=== PATIENT | female | born 1990 | race Caucasian/White ===

== ENCOUNTER → 2016-07-07 | Outpatient (CLI) | payer BC | LOC: MW.CHFP 10:20 | PROVIDERS: ATTEND Physician Assistant | DX: R39.9 Unspecified symptoms and signs involving the genitourinary system (principal) | CPT/HCPCS: 81001; 87480; 87491; 87510; 87591; 87660 ==

== ENCOUNTER → 2016-07-12 | Outpatient (CLI) | payer BC ==
--- NOTE | 2016-07-13 09:56 | US ---
EXAM DATE: 07/12/16 PATIENT'S AGE: 25 Patient: HUBERT REDD Facility: [place], [place] Site . Site : 1990 Study: US Pelvis [id number]/[id number] 11:29:20 AM Ordering Physician: Charly Johnson Final Report: HISTORY: Pelvic pain. Findings: Multiple grayscale static images from a transvaginal pelvic ultrasound were evaluated. Ovaries were evaluated with color and spectral Doppler. The uterus measures 8.7 x 6.1 x 4.5 cm. The myometrium is homogeneous. The endometrial stripe is 9 mm in thickness. Two Nabothian cysts are present. There is trace free fluid in the cul-de-sac. The right ovary measures 2.3 x 2.1 x 1.7 cm. It is normal in appearance with normal blood flow. The left ovary measures 3.4 x 1.9 x 2.7 cm. It is normal in appearance with normal blood flow. Impression: 1. Trace free fluid the pelvis, most likely physiologic. 2. Otherwise normal pelvic ultrasound. Dictated by Kelly Smith MD @ Jul 13 2016 12:34AM (Electronic Signature) Report Signed by Proxy and Original Signed Document filed in the Medical Record. MTDD
== END ==
LOC: MW.US 10:00
PROVIDERS: ATTEND Physician Assistant
DX: R10.2 Pelvic and perineal pain (principal)
CPT/HCPCS: 76830; 76830-26

== ENCOUNTER 2016-11-12 21:25 | Emergency (ER) | payer BC ==
--- NOTE | 2016-11-12 22:17 | EDM.PDOC ---
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 She felt a shock that seemed limited to her hand and lasted a "split second". No prolonged exposure She felt stunned but no LOC no other injury noted She denies She complains of left thumb pain and tingling and LUE aching left arm Pain Score (Numeric/FACES): 6 - Related Data Allergies Allergy/AdvReac Type Severity Reaction Status Date / Time No Known Allergies Allergy Verified 11/12/16 21:29 Home Meds: Home Meds LORazepam 0.5 mg PO ASDIRECTED 11/12/16 [History] Venlafaxine [Effexor] 75 mg PO DAILY 11/12/16 [History] Past Medical History HEENT History: Reports: None Cardiovascular History: Reports: None Respiratory History: Reports: None Gastrointestinal History: Reports: None CLINICAL FACULTY History: Reports: None Musculoskeletal History: Reports: None Neurological History: Reports: None Psychiatric History: Reports: Anxiety Endocrine/Metabolic History: Reports: Hypothyroidism Hematologic History: Reports: None Oncologic (Cancer) History: Reports: None Dermatologic History: Reports: None - Infectious Disease History Infectious Disease History: Reports: None - Past Surgical History GI Surgical History: Reports: Appendectomy Social & Family History - Family History Family Medical History: Noncontributory Cardiac: Reports: [place] - Tobacco Use Smoking Status *Q: Never Smoker Second Hand Smoke Exposure: No - Caffeine Use Caffeine Use: Reports: None - Recreational Drug Use Recreational Drug Use: No Drug Use in Last 12 Months: No - Living Situation & Occupation Living situation: Reports: ED ROS GENERAL - Review of Systems Review Of Systems: See Below (as per HPI) ED EXAM, GENERAL - Physical Exam Exam: See Below Free Text/Narrative:: alert lungs CTA heart RRR without m abdomen non tender LUE: darkened skin 3x3 mm over thumb; 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 neck supple EOMs normal c/o mild headache normal mentation EKG: NSR Course - Vital Signs Last Recorded V/S: Last Vital Signs Temp 96.9 F 11/12/16 21:37 Pulse 87 11/12/16 21:37 Resp 18 11/12/16 21:37 BP 174/73 H 11/12/16 21:37 Pulse Ox 100 11/12/16 21:37 - Orders/Labs/Meds Orders: Active Orders 24 hr Category Date Time Status UA W/O MICROSCOPIC [URIN] Stat Lab 11/12/16 23:10 Received Labs: Laboratory Tests 11/12/16 11/12/16 Range/Units 22:22 22:22 WBC 13.35 H (4.0-11.0) K/uL RBC 5.09 (4.30-5.90) M/uL Hgb 13.2 (12.0-16.0) g/dL Hct 40.1 (36.0-46.0) % MCV 78.8 L (80.0-98.0) fL MCH 25.9 L (27.0-32.0) pg MCHC 32.9 (31.0-37.0) g/dL RDW Std Deviation 45.1 (28.0-62.0) fl RDW Coeff of Gume 16 H (11.0-15.0) % Plt Count 408 H (150-400) K/uL MPV 9.60 (7.40-12.00) fL Neut % (Auto) 56.8 (48.0-80.0) % Lymph % (Auto) 36.5 (16.0-40.0) % Crisp % (Auto) 5.2 (0.0-15.0) % Eos % (Auto) 1.2 (0.0-7.0) % Baso % (Auto) 0.3 (0.0-1.5) % Neut # (Auto) 7.6 H (1.4-5.7) K/uL Lymph # (Auto) 4.9 H (0.6-2.4) K/uL Crisp # (Auto) 0.7 (0.0-0.8) K/uL Eos # (Auto) 0.2 (0.0-0.7) K/uL Baso # (Auto) 0.0 (0.0-0.1) K/uL Nucleated RBC % 0.0 /100WBC Nucleated RBCs # 0 K/uL Sodium 140 (136-146) mmol/L Potassium 3.6 (3.5-5.1) mmol/L Chloride 103 (98-110) mmol/L Carbon Dioxide 27 (21-31) mmol/L BUN 24 H (6.0-23.0) mg/dL Creatinine 0.8 (0.6-1.5) mg/dL Est Cr Clr Drug Dosing TNP Estimated GFR (MDRD) > 60.0 ml/min Glucose 113 H (60-110) mg/dL Calcium 9.1 (8.8-10.8) mg/dL Magnesium 1.5 (1.5-2.3) mEq/L Total Bilirubin 0.3 (0.1-1.5) mg/dL AST 14 (5-40) IU/L ALT 18 (8-54) IU/L Alkaline Phosphatase 66 (40-150) Creatine Kinase 39 (9-236) IU/L Total Protein 7.2 (6.0-8.0) g/dL Albumin 4.1 (3.5-5.0) g/dL Globulin 3.1 (2.0-3.5) g/dL Albumin/Globulin Ratio 1.3 (1.3-2.8) Departure - Departure Time of Disposition: 23:20 Disposition: Home, Self-Care 01 Condition: Good Clinical Impression: Electrical shock of hand - Discharge Information Referrals: PCP,Unknown [Primary Care Provider] - Forms: ED Department Discharge Additional Instructions: recheck for worsening symptoms tylenol as needed for pain. - My Orders Last 24 Hours: My Active Orders 11/12/16 23:10 UA W/O MICROSCOPIC [URIN] Stat - Assessment/Plan Last 24 Hours: My Active Orders 11/12/16 23:10 UA W/O MICROSCOPIC [URIN] Stat
[2016-11-12 22:54] LABS: CHLORIDE,CL 103 mmol/L (98-110); SODIUM,NA 140 mmol/L (136-146)
[2016-11-12 23:43] VITALS: BP 131/82
== END 2016-11-12 23:36 | disposition home or self-care (01) ==
LOC: MW.ED 21:25
DX: T75.4XXA Electrocution, initial encounter (principal); E03.9 Hypothyroidism, unspecified; Z90.49 Acquired absence of other specified parts of digestive tract; Z79.899 Other long term (current) drug therapy; W86.8XXA Exposure to other electric current, initial encounter
CPT/HCPCS: 36415; 80053; 81003; 82550; 83735; 85025; 93005; 99282; 99283-25

== ENCOUNTER 2017-04-17 14:10 | Emergency (ER) | payer BC ==
--- NOTE | 2017-04-17 14:39 | EDM.PDOC ---
ED HPI GENERAL MEDICAL PROBLEM - General Chief Complaint: ENT Problem Stated Complaint: BODYACHES,SORE THROAT AND COUGHING Time Seen by Provider: 04/17/17 14:15 Source of Information: Reports: Patient History Limitations: Reports: No Limitations - History of Present Illness INITIAL COMMENTS - FREE TEXT/NARRATIVE: HISTORY AND PHYSICAL: History of present illness: Patient is a 26 showed female who presents to the emergency room today with complaints of cough, sore throat, fever 2 days. 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 Has been taking Tylenol and ibuprofen [id number] without any relief. She states her chest wall hurts from "coughing so hard". Denies any abdominal pain, nausea, vomiting or diarrhea. Review of systems: As per history of present illness and below otherwise all systems reviewed and negative. Past medical history: As per history of present illness and as reviewed below otherwise noncontributory. Surgical history: As per history of present illness and as reviewed below otherwise noncontributory. Social history: No reported history of drug or alcohol abuse. Family history: As per history of present illness and as reviewed below otherwise noncontributory. Physical exam: General : Nontoxic-appearing 26 showed female. Alert and oriented. Well- developed and well-nourished. Appears in no acute distress HEENT: Atraumatic, normocephalic, pupils reactive, negative for conjunctival pallor or scleral icterus, mucous membranes moist, throat clear, neck supple, nontender, trachea midline. Lungs: Clear to auscultation, breath sounds equal bilaterally, chest nontender. Heart: S1S2, regular rate and rhythm Abdomen: Soft, obese, nondistended, nontender. Negative for masses or hepatosplenomegaly. Negative for costovertebral tenderness. Pelvis: Stable nontender. Genitourinary: Deferred. Rectal: Deferred. Extremities: Atraumatic, negative for cords or calf pain. Neurovascular unremarkable. Neuro: Awake, alert, oriented. Cranial nerves II through XII unremarkable. Cerebellum unremarkable. Motor and sensory unremarkable throughout. Exam nonfocal. Influenza and strep screen are negative. We discussed viral illness. Supportive care measures at home. Work note was provided. Requesting medication for her cough as she has exhausted OTC products. Follow up with her primary caregiver in the next week. She voices understanding and is agreeable to plan of care. Diagnostics: Influenza, strep Therapeutics: [] Impression: Viral illness Plan: 1. Phenergan with codeine has been prescribed for you cough. This will make you drowsy so do not take it while driving or needing to be functioning outside of the house. Otherwise he may use ibuprofen or Tylenol as directed. Rest. Drink plenty of fluids to prevent dehydration. 2. Follow up with her primary care provider next week. Return to the ED as needed and as discussed. Definitive disposition and diagnosis as appropriate pending reevaluation and review of above. 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 Musculoskeletal History: Reports: None Neurological History: Reports: None Psychiatric History: Reports: Anxiety Endocrine/Metabolic History: Reports: Hypothyroidism Hematologic History: Reports: None Oncologic (Cancer) History: Reports: None Dermatologic History: Reports: None - Infectious Disease History Infectious Disease History: Reports: None - Past Surgical History GI Surgical History: Reports: Appendectomy Social & Family History - Family History Family Medical History: Noncontributory Cardiac: Reports: [place] - Tobacco Use Smoking Status *Q: Never Smoker Second Hand Smoke Exposure: No - Caffeine Use Caffeine Use: Reports: None - Recreational Drug Use Recreational Drug Use: No Drug Use in Last 12 Months: No - Living Situation & Occupation Living situation: Reports: ED ROS ENT - Review of Systems Review Of Systems: ROS reveals no pertinent complaints other than HPI. ED EXAM, ENT - Physical Exam Exam: See Below (See dictation) Course - Vital Signs Last Recorded V/S: Last Vital Signs Temp 96.8 F 04/17/17 14:17 Pulse 99 04/17/17 14:17 Resp 18 04/17/17 14:17 BP 157/101 H 04/17/17 14:17 Pulse Ox 99 04/17/17 14:17 - Orders/Labs/Meds Orders: Active Orders 24 hr Category Date Time Status CULTURE STREP A CONFIRMATION [RM] Stat Lab 04/17/17 14:22 Results STREP SCRN A RAPID W CULT CONF [] Stat Lab 04/17/17 14:22 Results Departure - Departure Time of Disposition: 15:08 Disposition: Home, Self-Care 01 Clinical Impression: Viral illness - Discharge Information Referrals: PCP,None [Primary Care Provider] - Forms: ED Department Discharge Additional Instructions: My general discharge The following information is given to patients seen in the emergency department who are being discharged to home. This information is to outline your options for follow-up care. We provide all patients seen in our emergency department with a follow-up referral. The need for follow-up, as well as the timing and circumstances, are variable depending upon the specifics of your emergency department visit. If you don't have a primary care physician on staff, we will provide you with a referral. We always advise you to contact your personal physician following an emergency department visit to inform them of the circumstance of the visit and for follow-up with them and/or the need for any referrals to a consulting specialist. The emergency department will also refer you to a specialist when appropriate. This referral assures that you have the opportunity for follow-up care with a specialist. All of these measure are taken in an effort to provide you with optimal care, which includes your follow-up. Under all circumstances we always encourage you to contact your private physician who remains a resource for coordinating your care. When calling for follow-up care, please make the office aware that this follow-up is from your recent emergency room visit. If for any reason you are refused follow-up, please contact the [facility] Emergency Department at and asked to speak to the emergency department charge nurse. [facility] [address] [place] [phone] 1. Phenergan with codeine has been prescribed for you cough. This will make you drowsy so do not take it while driving or needing to be functioning outside of the house. Otherwise he may use ibuprofen or Tylenol as directed. Rest. Drink plenty of fluids to prevent dehydration. 2. Follow up with her primary care provider next week. Return to the ED as needed and as discussed. - My Orders Last 24 Hours: My Active Orders 04/17/17 14:22 CULTURE STREP A CONFIRMATION [RM] Stat STREP SCRN A RAPID W CULT CONF [RM] Stat - Assessment/Plan Last 24 Hours: My Active Orders 04/17/17 14:22 CULTURE STREP A CONFIRMATION [RM] Stat STREP SCRN A RAPID W CULT CONF [RM] Stat
[2017-04-17 15:40] VITALS: BP 135/73
== END 2017-04-17 15:30 | disposition home or self-care (01) ==
LOC: MW.ED 14:10
DX: B34.9 Viral infection, unspecified (principal); Z79.899 Other long term (current) drug therapy
CPT/HCPCS: 87081; 87804; 87880; 99283